=== PATIENT | male | born 1995 | race African-American/Black ===

== ENCOUNTER 2017-06-19 02:04 | Emergency (ER) | payer OTHER ==
--- NOTE | 2017-06-19 09:00 | CT ---
PRELIMINARY REPORT/[facility]/EMERGENTY AFTER-HOURS PROCEDURE CT Maxillofacial Without Intravenous Contrast CLINICAL HISTORY: 22 years old, male; Pain; Eye pain; Left TECHNIQUE: Axial computed tomography images of the face without intravenous contrast. All CT scans at this [facility] use one or more dose reduction techniques, viz.: automated exposure control; ma/Kv adjustment per patient size (including targeted exams where dose is matched to indication; i.e. head); or iterative reconstruction technique. Coronal and sagittal reformatted images were created and revie wed. COMPARISON: No relevant prior studies available. FINDINGS: Bones/joints: There is moderate soft tissue swelling overlying the nose with minimal LEFT to RIGHT an gulation with possible acute fracture. Soft tissues: There is marked LEFT periorbital soft tissue swelling measuring approximately 3.6 x 1.5 cm compatible with cellulitis or hematoma in the appropriate clinical setting. Orbits: There is no evidence of retro-bulbar hemorrhage. There is no evidence of globe or lens injury . Sinuses: Normal. No air-fluid levels. IMPRESSION: 1. There is marked LEFT periorbital soft tissue swelling measuring approximately 3.6 x 1.5 cm compatible with cellulitis or hematoma in the appropriate clinical setting. 2. There is moderate soft tissue swelling overlying the nose with minimal LEFT to RIGHT angulation wi th possible acute fracture. Correlate clinically. Thank you for allowing us to participate in the care of your patient. Dictated and Authenticated by: Emiliano Pond MD 06/19/2017 4:30 AM Central Time ([place] & [place]) FINAL REPORT CT OF THE FACE WITHOUT CONTRAST: Date: 06/19/17 COMPARISON: 11/26/13. FINDINGS/IMPRESSION: I agree with the findings and impression given in the preliminary report per [facility] physician. There is soft tissue swelling of the nose and left periorbital soft tissues. There is deviation of the nose t o the left. This has changed compared to the prior examination. This may represent an acute nasal fra cture of the left nasal bone. A chronic fracture is also a possibility. Correlate with history of leela or nasal fracture. POS: [facility]
== END 2017-06-19 04:40 ==
LOC: NAV ERS 02:04
DX: S09.93XA Unspecified injury of face, initial encounter (principal)
CPT/HCPCS: 70486